=== PATIENT | female | born 1985 | race Caucasian/White ===

== ENCOUNTER → 2020-03-12 10:46 | Outpatient (BNVA) | payer OTHER, SELFPAY | PROVIDERS: Visit Provider Podiatrist Foot & Ankle Surgery | DX: M79.673 Pain in unspecified foot (principal) | CPT/HCPCS: 73630 ==

== ENCOUNTER → 2020-06-09 16:04 | Outpatient (BNVA) | payer OTHER, SELFPAY | PROVIDERS: Visit Provider Podiatrist Foot & Ankle Surgery | DX: M79.674 Pain in right toe(s) (principal); M25.80 Other specified joint disorders, unspecified joint | CPT/HCPCS: 73630 ==

== ENCOUNTER → 2020-07-14 15:56 | Outpatient (BNVA) | payer OTHER, SELFPAY | PROVIDERS: Referring Provider Dermatology; Visit Provider Dermatology | DX: L70.0 Acne vulgaris (principal); L30.0 Nummular dermatitis; L81.8 Other specified disorders of pigmentation; D22.9 Melanocytic nevi, unspecified | CPT/HCPCS: 99203; 99204 ==

== ENCOUNTER 2021-06-23 10:32 | Outpatient (RCR) | payer OTHER, SELFPAY | END 2021-07-12 23:59 | disposition home or self-care (01) | LOC: SPT 10:32 | PROVIDERS: Visit Provider Family Medicine | DX: S46.811D Strain of other muscles, fascia and tendons at shoulder and upper arm level, right arm, subsequent encounter (principal); X58.XXXD Exposure to other specified factors, subsequent encounter | CPT/HCPCS: 20560; 97110; 97161; 97530 ==

== ENCOUNTER 2021-07-13 06:00 | Outpatient (RCR) | payer OTHER, SELFPAY | END 2021-08-11 23:59 | disposition home or self-care (01) | LOC: SPT 06:00 | PROVIDERS: Visit Provider Family Medicine | DX: S46.811D Strain of other muscles, fascia and tendons at shoulder and upper arm level, right arm, subsequent encounter (principal); X58.XXXD Exposure to other specified factors, subsequent encounter | CPT/HCPCS: 20560; 97110; 97530 ==

== ENCOUNTER 2021-08-12 06:00 | Outpatient (RCR) | payer SELFPAY | END 2021-09-11 23:59 | disposition home or self-care (01) | LOC: SPT 06:00 | PROVIDERS: Visit Provider Family Medicine | DX: S46.811D Strain of other muscles, fascia and tendons at shoulder and upper arm level, right arm, subsequent encounter (principal); X58.XXXD Exposure to other specified factors, subsequent encounter | CPT/HCPCS: 20560; 97110 ==

== ENCOUNTER → 2022-11-07 14:30 | Outpatient (BNVA) | payer SELFPAY | PROVIDERS: Visit Provider Obstetrics & Gynecology | DX: Z20.2 Contact with and (suspected) exposure to infections with a predominantly sexual mode of transmission (principal); Z71.1 Person with feared health complaint in whom no diagnosis is made; Z30.9 Encounter for contraceptive management, unspecified | CPT/HCPCS: 81025; 86592; 86803; 87340; 87491; 87591; 87661; 87806 ==

== ENCOUNTER → 2023-07-13 10:21 | Outpatient (BNVA) | payer OTHER, SELFPAY | PROVIDERS: Referring Provider Dermatology; Visit Provider Physician Assistant | DX: M75.42 Impingement syndrome of left shoulder (principal); M75.41 Impingement syndrome of right shoulder | CPT/HCPCS: 73030 ==

== ENCOUNTER → 2024-03-27 15:48 | Outpatient (BNVA) | payer OTHER, SELFPAY | PROVIDERS: Visit Provider Obstetrics & Gynecology | DX: Z20.2 Contact with and (suspected) exposure to infections with a predominantly sexual mode of transmission (principal); Z01.419 Encounter for gynecological examination (general) (routine) without abnormal findings; Z71.1 Person with feared health complaint in whom no diagnosis is made | CPT/HCPCS: 87491; 87591 ==

== ENCOUNTER 2025-04-23 07:20 | Outpatient (CLI) | payer SELFPAY ==
[2025-04-23 08:02] LABS: HF Add Manual Diff No
[2025-04-23 08:10] LABS: Basophils % 0.5 %; Eosinophils # 0.2 10^3/uL (0.0-0.8); Eosinophils % 2.2 %; Hematocrit 40.6 % (36-47); Lymphocytes # 3.2 10^3/uL (0.8-4.8); Lymphocytes % 37.1 %; Mean Corpuscular HGB Conc 33.7 g/dL (30-55); Mean Corpuscular Hemoglobin 33.3 pg (27-33); Mean Corpuscular Volume 98.8 fl (85-98); Mean Platelet Volume 9.6 fL (7.4-10.4); Monocytes # 0.7 10^3/uL (0.2-0.9); Monocytes % 7.6 %; Neutrophils # 4.52 10^3/uL (1.8-7.7); Neutrophils % 52.3 %; Nucleated Red Blood Cells % 0 %; Platelet Count 342 10^3/cmm (157-399); Red Blood Count 4.11 10^6/uL (3.85-5.65); Red Cell Distribution Width 11.9 % (12.1-15.1); White Blood Count 8.65 10^3/uL (3.29-11.43)
[2025-04-23 08:29] LABS: Estmated Average Glucose 103; Hemoglobin A1C 5.2 % (4.0-6.0)
[2025-04-23 08:50] LABS: Alanine Aminotransferase 18 U/L (0-33); Albumin Level 4.2 g/dL (3.5-5.2); Alkaline Phosphatase 72 U/L (35-105); Anion Gap 16.7 (5-19); Aspartate Amino Transferase 23 U/L (0-32); Blood Urea Nitrogen 13 mg/dL (6-20); Calcium 9.1 mg/dL (8.5-10.5); Carbon Dioxide 20 mmol/L (22-29); Chloride 103 mmol/L (98-107); Chol HDL Ratio 2.77 mg/dL (0.0-4.40); Cholesterol 180 mg/dL (0-200); Glomerular Filtration Rate 70.1 mL/min (90-130); Glucose 99 mg/dL (65-115); HDL Cholesterol 65 mg/dL (60-100); LDL Cholesterol Calculated 101 mg/dL (50-129); LDL HDL Ratio 1.55 RATIO (0.00-3.22); Osmolality Calculated 282 mOsm/kg (285-295); Potassium 3.7 mmol/L (3.5-5.1); Sodium 136 mmol/L (136-145); Thyroid Stimulating Hormone 1.36 uIU/mL (0.27-4.20); Total Bilirubin 0.7 mg/dL (0.15-1.2); Total Protein 7.2 g/dL (6.6-8.7); Triglycerides 68 mg/dL (0-150)
== END 2025-04-23 07:21 | disposition home or self-care (01) ==
LOC: LAB 07:21
PROVIDERS: PCP Family Medicine; Visit Provider Dermatology
DX: Z01.89 Encounter for other specified special examinations (principal)
CPT/HCPCS: 36415

== ENCOUNTER → 2025-05-22 14:04 | Outpatient (BNVA) | payer OTHER, SELFPAY | PROVIDERS: PCP Family Medicine; Visit Provider Family Medicine | DX: Z12.11 Encounter for screening for malignant neoplasm of colon (principal); Z12.12 Encounter for screening for malignant neoplasm of rectum | CPT/HCPCS: 87624 ==

== ENCOUNTER → 2025-07-16 12:20 | Outpatient (BNVA) | payer OTHER, SELFPAY | PROVIDERS: PCP Family Medicine; Visit Provider Family Medicine | DX: N39.0 Urinary tract infection, site not specified (principal); N76.0 Acute vaginitis | CPT/HCPCS: 81000; 87491; 87591; 87661 ==